=== PATIENT | female | born 1965 | race Caucasian/White ===

== ENCOUNTER 2017-06-19 16:16 | Emergency (ER) | payer OTHER ==
[~2017-06-19] VITALS: Ht 162.6 cm; Wt 100.0 kg
[~2017-06-19 16:16] MED LIST: Bisacodyl PO; Docusate Sodium PO; HYDR-523 PO; Lisinopril PO
[2017-06-19] MEDS ORDERED: KETOROLAC 30MG/ML VIAL IV STA (18:08)
[2017-06-19] MEDS ORDERED: SODIUM CHLORIDE 0.9% 1,000 ML IV ONE (18:08)
[2017-06-19 18:37] LABS: BASOPHILS % 1.4 % (0.0-2.0); EOSINOPHILS % 2.4 % (0.0-5.0); HEMATOCRIT. 40.1 % (36.0-48.0); HEMOGLOBIN. 13.5 g/dL (12.0-16.0); LYMPHOCYTES % 29.7 % (20.0-50.0); MEAN CORPUSCULAR VOLUME 83.5 fL (81.0-99.0); MEAN PLATELET VOLUME 10.1 fl (7.4-10.4); MONOCYTES % 8.5 % (2.0-8.0); PLATELET 153 x1000/uL (130-400); RED BLOOD CELL COUNT 4.81 mill/uL (4.2-5.4); RED CELL DISTRIBUTION WIDTH 14.6 % (11.6-14.6)
[2017-06-19 18:43] LABS: CHLORIDE 102 mEq/L (98-107)
[2017-06-19 18:44] LABS: INR 1.1; PROTHROMBIN TIME 11.4 sec (9.4-11.6)
[2017-06-19] MEDS ORDERED: POTASSIUM CHLORIDE 20MEQ TABLET SR PO ONE (19:00)
[2017-06-19 20:02] LABS: CLARITY URINE CLEAR (CLEAR); COLOR URINE YELLOW (YELLOW); KETONES URINE NEGATIVE (NEGATIVE); LEUKOCYTE ESTERASE URINE NEGATIVE (NEGATIVE); NITRITE URINE NEGATIVE (NEGATIVE); OCCULT BLOOD URINE NEGATIVE (NEGATIVE); PROTEIN URINE NEGATIVE (NEGATIVE); SPECIFIC GRAVITY URINE 1.019 (1.005-1.030); UROBILINOGEN URINE 0.2 E.U./dL (0.2-1.0)
[2017-06-19 22:00] VITALS: BP 154/96
== END 2017-06-19 22:05 | disposition home or self-care (01) ==
LOC: ER 16:43
DX: I10 Essential (primary) hypertension (principal); R51 Headache; E87.6 Hypokalemia; I51.7 Cardiomegaly
CPT/HCPCS: 36415; 70450; 71045; 80053; 81003; 85025; 85610; 93005; 96361; 96374; 99285; J1885; J7030; Z7610

== ENCOUNTER 2019-04-23 14:47 | Emergency (ER) | payer MEDICAID, OTHER ==
[~2019-04-23] VITALS: Ht 167.6 cm; Wt 68.0 kg
[2019-04-23] MEDS ORDERED: ACETAMINOPHEN 500MG TABLET PO ONE (20:00)
[2019-04-23] MEDS ORDERED: IBUPROFEN 800MG TABLET PO ONE (20:00)
[2019-04-23 21:38] VITALS: BP 131/88
== END 2019-04-23 21:30 | disposition home or self-care (01) ==
LOC: ER 14:47
DX: S39.012A Strain of muscle, fascia and tendon of lower back, initial encounter (principal); S13.4XXA Sprain of ligaments of cervical spine, initial encounter; M62.830 Muscle spasm of back; V49.40XA Driver injured in collision with unspecified motor vehicles in traffic accident, initial encounter; Y93.89 Activity, other specified; Y92.410 Unspecified street and highway as the place of occurrence of the external cause
CPT/HCPCS: 72040; 72100; 99283

== ENCOUNTER 2022-05-29 07:54 | Emergency (ER) | payer MEDICAID, OTHER ==
[~2022-05-29] VITALS: Ht 167.6 cm; Wt 82.0 kg
[2022-05-29 08:01] VITALS: BP 138/78
== END 2022-05-29 10:40 | disposition home or self-care (01) ==
LOC: ER 07:54
DX: R09.89 Other specified symptoms and signs involving the circulatory and respiratory systems (principal); R00.1 Bradycardia, unspecified; F41.8 Other specified anxiety disorders; I10 Essential (primary) hypertension; E11.9 Type 2 diabetes mellitus without complications; Z79.899 Other long term (current) drug therapy
CPT/HCPCS: 70360; 71045; 99284

== ENCOUNTER 2024-01-23 10:42 | Emergency (ER) | payer MEDICAID, OTHER ==
[~2024-01-23] VITALS: Ht 162.6 cm; Wt 70.0 kg
[2024-01-23 10:49] VITALS: O2SAT 99
[2024-01-23] MEDS: KETOROLAC 15MG/ML VIAL IM ONE (12:03)
[2024-01-23 13:15] VITALS: BP 137/76; PULSE 86; RESP 18; TEMP 36.94740; O2SAT 99
== END 2024-01-23 13:15 | disposition home or self-care (01) ==
LOC: ER 10:42
DX: M25.552 Pain in left hip (principal)
CPT/HCPCS: 93971; 73502; 96372; 99285; J1885; Z7610